=== PATIENT | female | born 1970 | race Caucasian/White ===

== ENCOUNTER 2017-01-09 02:02 | Emergency (ER) | payer MEDICAID ==
[2017-01-09 02:07] VITALS: BMI 26.9
[2017-01-09 02:09] VITALS: RESP 18; O2SAT 99
[2017-01-09 02:59] LABS: ADD MANUAL DIFF? NO
--- NOTE | 2017-01-09 03:08 | ED PDOC ---
Arrival/HPI - General Chief Complaint: Palpitations Time Seen by Provider: 01/09/17 02:30 - History of Present Illness Narrative History of Present Illness (Text): 01/09/17 03:03 Aurora Gutierrez is a 46 year old female, with a history of SD and hypertension , presents to the emergency department complaining of chest pain and shortness of breath which began while she was in the emergency department with her son, who is a patient her and undergoing psychiatric evaluation. States she has not taken hypertension medications due to stress for the last several days. Denies any headache, dizziness, abdominal pain, nausea, vomiting, diarrhea, urinary symptoms, or any other complaints at this time. Time/Duration: Prior to Arrival Symptom Onset: Sudden Symptom Course: Unchanged Severity Level: Mild Activities at Onset: Light Past Medical History - Provider Review Nursing Documentation Reviewed: Yes - Infectious Disease Hx of Infectious Diseases: None - Cardiac Hx Hypertension: Yes - Pulmonary Hx Respiratory Disorders: No - Neurological Hx Neurological Disorder: No - HEENT Hx HEENT Disorder: No - Renal Hx Renal Disorder: No - Endocrine/Metabolic Hx Endocrine Disorders: No - Hematological/Oncological Hx Hepatitis C: Yes - Integumentary Hx Dermatological Disorder: No - Musculoskeletal/Rheumatological Hx Musculoskeletal Disorders: No - Gastrointestinal Hx Gastrointestinal Disorders: No - Genitourinary/Gynecological Hx Genitourinary Disorders: No - Psychiatric Hx Psychophysiologic Disorder: No Hx Depression: No Hx Emotional Abuse: No Hx Physical Abuse: No Hx Substance Use: No - Surgical History Hx Appendectomy: Yes Hx Coronary Stent: Yes - Anesthesia Hx Anesthesia: Yes Hx Anesthesia Reactions: No Hx Malignant Hyperthermia: No - Suicidal Assessment Feels Threatened In Home Enviroment: No Family/Social History - Physician Review Nursing Documentation Reviewed: Yes Family/Social History: No Known Family HX Smoking Status: Current Some Days Smoker Hx Alcohol Use: No Hx Substance Use: No Hx Substance Use Treatment: No Allergies/Home Meds Allergies/Adverse Reactions: Allergies No Known Allergies Allergy (Verified 01/09/17 02:07) Home Medications: Home Meds Medication Instructions Recorded Confirmed No Known Home Med 01/09/17 01/09/17 Review of Systems - Physician Review All systems were reviewed & negative as marked: Yes - Review of Systems Constitutional: Normal. absent: Fatigue, Fevers Respiratory: Normal, SOB. absent: Cough Cardiovascular: Chest Pain. absent: Palpitations Gastrointestinal: Normal. absent: Diarrhea, Nausea, Vomiting Neurological: Normal. absent: Headache, Dizziness Psychiatric: Anxiety Physical Exam Vital Signs Reviewed: Yes Vital Signs Temp Pulse Resp BP Pulse Ox 01/09/17 03:59 98.5 F 80 18 169/94 H 99 01/09/17 02:08 98.1 F 119 H 18 193/95 H 99 Temperature: Afebrile Blood Pressure: Hypertensive Pulse: Tachycardic Respiratory Rate: Normal Appearance: Positive for: Well-Appearing, Non-Toxic, Comfortable Pain Distress: None Mental Status: Positive for: Alert and Oriented X 3 - Systems Exam Head: Present: Atraumatic, Normocephalic Pupils: Present: PERRL Conjunctiva: Present: Normal Respiratory/Chest: Present: Clear to Auscultation, Good Air Exchange. No: Respiratory Distress, Accessory Muscle Use Cardiovascular: Present: Regular Rate and Rhythm, Normal S1, S2. No: Murmurs Abdomen: Present: Normal Bowel Sounds. No: Tenderness, Distention, Peritoneal Signs Neurological: Present: GCS=15, CN II-XII Intact, Speech Normal Skin: Present: Warm, Dry, Normal Color. No: Rashes Psychiatric: Present: Alert, Oriented x 3, Anxious Medical Decision Making ED Course and Treatment: Progress Notes: 01/09/17 03:10 EKG interpreted by me: NSR @ 87 bpm. Normal Cisco. Normal interval. No acute ischemia. 01/09/17 03:56 Patient states she feels much better post treatment. Advised to present to emergency department for worsening symptoms and follow up with PMD tomorrow. - Lab Interpretations Lab Results: 01/09/17 02:50 01/09/17 02:50 Lab Results 01/09/17 02:50: WBC 8.0, RBC 4.24, Hgb 13.3, Hct 38.4, MCV 90.6, MCH 31.4, MCHC 34.6, RDW 12.8, Plt Count 244, MPV 10.6, Gran % 69.9 H, Lymph % (Auto) 18.4 L, Teller % (Auto) 11.0 H, Eos % (Auto) 0.6 L, Baso % (Auto) 0.1, Gran # 5.60, Lymph # 1.5, Teller # 0.9 H, Eos # 0.1, Baso # 0.01, Sodium 137, Potassium 3.2 L, Chloride 106, Carbon Dioxide 24, Anion Gap 10, BUN 13, Creatinine 0.7, Est GFR ( Amer) > 60, Est GFR (Non-Af Amer) > 60, Random Glucose 102, Calcium 8.7 , Total Bilirubin 0.6, AST 20, ALT 26, Alkaline Phosphatase 63, Troponin I < 0.01, Total Protein 6.5, Albumin 3.6, Globulin 2.9, Albumin/Globulin Ratio 1.2 - RAD Interpretation Radiology Orders: 01/09/17 02:30 CHEST PORTABLE [RAD] Stat - Medication Orders Current Medication Orders: Discontinued Medications Home Med (*Refrigerator Open) Confirm Administered Dose 1 unit XX .STK-MED ONE Stop: 01/09/17 06:03 Lorazepam (Ativan) 1 mg PO ONCE ONE PRN Reason: Protocol Stop: 01/09/17 02:32 Last Admin: 01/09/17 02:44 Dose: 1 MG Behavioural Document 01/09/17 02:44 EQ (Rec: 01/09/17 02:44 EQ [facility] [id number]) Maintenance Maintenance Dose No Nonmedicinal Nonmedicinal Interventions Redirect Therapeutic Communication Behavior Behavior for Medication: Anxiety - Scribe Statement The provider has reviewed the documentation as recorded by the Araceli Plascencia Provider Attestation: All medical record entries made by the Araceli were at my direction and personally dictated by me. I have reviewed the chart and agree that the record accurately reflects my personal performance of the history, physical exam, medical decision making, and the department course for this patient. I have also personally directed, reviewed, and agree with the discharge instructions and disposition. Disposition/Present on Arrival - Present on Arrival Any Indicators Present on Arrival: No History of DVT/PE: No History of Uncontrolled Diabetes: No Urinary Catheter: No History of Decub. Ulcer: No History Surgical Site Infection Following: None - Disposition Have Diagnosis and Disposition been Completed?: Yes Diagnosis: Chest pain, Stress reaction Disposition: HOME/ ROUTINE Disposition Time: 04:07 Condition: IMPROVED Discharge Instructions (ExitCare): Chest Pain (ED) Additional Instructions: Please follow up with your doctor. Return to the ER for any worsening symptoms or for any other concerns.
[2017-01-09 03:09] LABS: BASO # 0.01 K/mm3 (0.0-2.0); BASO % 0.1 % (0.0-3.0); EOS # 0.1 (0.0-0.7); EOS % 0.6 % (1.5-5.0); GRAN % 69.9 % (50.0-68.0); HEMATOCRIT 38.4 % (36.0-48.0); LYMPH # 1.5 (1.2-3.4); LYMPH % 18.4 % (22.0-35.0); MEAN CELL VOLUME 90.6 fL (80.0-105.0); MEAN CORPUSCULAR HEMOGLOBIN 31.4 pg (25.0-35.0); MEAN CORPUSCULAR HGB CONC 34.6 g/dl (31.0-37.0); MEAN PLATELET VOLUME 10.6 fl (7.0-11.0); MONO # 0.9 (0.1-0.6); PLATELET COUNT 244 10^3/uL (120.0-450.0); RED CELL DISTRIBUTION WIDTH 12.8 % (11.5-14.5)
[2017-01-09 03:22] LABS: ALB/GLOB RATIO 1.2 (1.1-1.8); ALKALINE PHOSPHATASE 63 U/L (38-133); ALT/SGPT 26 U/L (7-56); AST/SGOT 20 U/L (15-39); BILIRUBIN,TOTAL 0.6 mg/dL (0.2-1.3); BLOOD UREA NITROGEN 13 mg/dL (7-21); CALCIUM 8.7 mg/dL (8.4-10.5); CARBON DIOXIDE 24 mmol/L (21-33); CHLORIDE 106 mmol/L (95-110); GFR AFRICAN-AMERICAN > 60; GLUCOSE,RANDOM 102 mg/dL (70-110); POTASSIUM 3.2 mmol/L (3.6-5.0); SODIUM 137 mmol/L (132-148); TOTAL PROTEIN 6.5 g/dL (5.8-8.3)
[2017-01-09 03:43] LABS: TROPONIN I < 0.01 ng/mL
[2017-01-09 04:01] VITALS: BP 169/94; PULSE 80; TEMP 98.5
--- NOTE | 2017-01-09 07:29 | RAD ---
HISTORY: cp COMPARISON: No prior. FINDINGS: LUNGS: No active pulmonary disease. PLEURA: No significant pleural effusion identified, no pneumothorax apparent. CARDIOVASCULAR: Normal. OSSEOUS STRUCTURES: No significant abnormalities. VISUALIZED UPPER ABDOMEN: Normal. OTHER FINDINGS: None. IMPRESSION: No active disease.
--- NOTE | 2017-01-09 10:13 | CARD ---
APPROVED REPORT EKG Measurement Heart [id number] ID [id number] <Conclusion> Normal sinus rhythm Possible Left atrial enlargement Borderline ECG
== END 2017-01-09 04:08 | disposition home or self-care (01) ==
LOC: ED 02:02
DX: F43.9 Reaction to severe stress, unspecified (principal); R07.9 Chest pain, unspecified; F17.210 Nicotine dependence, cigarettes, uncomplicated; I10 Essential (primary) hypertension